=== PATIENT | female | born 1950 | race Caucasian/White ===

== ENCOUNTER → 2024-02-18 12:57 | Outpatient (REF) | payer MEDICARE, OTHER, SELFPAY | LOC: WDC 12:57 | PROVIDERS: ATTENDING PHYSICIAN Internal Medicine | DX: Z12.31 Encounter for screening mammogram for malignant neoplasm of breast (principal) | CPT/HCPCS: 77063; 77067 ==

== ENCOUNTER → 2024-09-09 11:14 | Outpatient (REF) | payer MEDICARE, OTHER, SELFPAY ==
[2024-09-09 12:46] LABS: Glycohemoglobin (HgbA1c) 8.1 % (4.0-5.6)
[2024-09-09 17:08] LABS: ALT (SGPT) 43 U/L (0-35); AST (SGOT) 31 U/L (14-36); Albumin 5.2 g/dl (3.5-5.0); Alkaline Phosphatase 90 U/L (38-126); Blood Urea Nitrogen 38 mg/dl (7-17); Calcium 11.1 mg/dl (8.4-10.2); Carbon Dioxide 17 mmol/L (22-30); Chloride 106 mmol/L (98-107); Glucose 163 mg/dl (70-99); HDL Cholesterol 46 mg/dl; Potassium 5.2 mmol/L (3.5-5.1); Sodium 137 mmol/L (135-145); Total Bilirubin 0.9 mg/dl (0.2-1.3); Total Cholesterol 294 mg/dl (50-199); Total Protein 7.5 g/dl (6.3-8.2); eGFR 42.62
[2024-09-09 17:09] LABS: Triglyceride 447 mg/dl (10-149)
[2024-09-09 17:47] LABS: LDL Cholesterol, Direct 172 mg/dl
== END ==
LOC: REG 11:14
PROVIDERS: ATTENDING PHYSICIAN Internal Medicine
DX: E11.9 Type 2 diabetes mellitus without complications (principal); E78.5 Hyperlipidemia, unspecified
CPT/HCPCS: 36415; 80053; 80061; 83036; 83721

== ENCOUNTER → 2025-01-08 11:28 | Outpatient (REF) | payer MEDICARE, OTHER, SELFPAY ==
[2025-01-08 13:52] LABS: ALT (SGPT) 24 U/L (0-35); AST (SGOT) 19 U/L (14-36); Alkaline Phosphatase 69 U/L (38-126); Blood Urea Nitrogen 41 mg/dl (7-17); Calcium 11.9 mg/dl (8.4-10.2); Carbon Dioxide 21 mmol/L (22-30); Chloride 111 mmol/L (98-107); Glucose 80 mg/dl (70-99); HDL Cholesterol 53 mg/dl; LDL Cholesterol, Calculated 143 mg/dl; Potassium 5.2 mmol/L (3.5-5.1); Sodium 142 mmol/L (135-145); Total Bilirubin 0.8 mg/dl (0.2-1.3); Total Cholesterol 231 mg/dl (50-199); Total Protein 7.5 g/dl (6.3-8.2); Triglyceride 177 mg/dl (10-149); Very Low Density Lipoprotein 35 mg/dl (0-30); eGFR 35.89
[2025-01-08 14:17] LABS: TSH Reflex To Free T4 1.67 uIU/ml (0.47-4.68)
[2025-01-08 14:38] LABS: Free T3 2.88 pg/ml (2.77-5.27)
[2025-01-09 09:01] LABS: Glycohemoglobin (HgbA1c) 5.5 % (4.0-5.6)
[2025-01-09 15:22] LABS: Microalbumin, Random Urine 1.8 mg/dl (0.6-1.7); Microalbumin/creatinine Ratio 13.5 mg/g
== END ==
LOC: REG 11:28
PROVIDERS: ATTENDING PHYSICIAN Internal Medicine
DX: E11.9 Type 2 diabetes mellitus without complications (principal); F32.9 Major depressive disorder, single episode, unspecified; E78.5 Hyperlipidemia, unspecified; F41.9 Anxiety disorder, unspecified; E11.21 Type 2 diabetes mellitus with diabetic nephropathy
CPT/HCPCS: 36415; 80053; 80061; 82043; 82570; 83036; 84443; 84481

== ENCOUNTER → 2025-02-18 12:19 | Outpatient (REF) | payer MEDICARE, OTHER, SELFPAY | LOC: WDC 12:19 | PROVIDERS: ATTENDING PHYSICIAN Internal Medicine | DX: Z12.31 Encounter for screening mammogram for malignant neoplasm of breast (principal) | CPT/HCPCS: 77063; 77067 ==